=== PATIENT | male | born 1965 | race Caucasian/White ===

== ENCOUNTER 2016-07-10 21:45 | Emergency (ER) | payer OTHER ==
[2016-07-10] MEDS ORDERED: IPRATROPIUM/ALBUTEROL 0.5/3 MG 3 ML AMPUL.NEB INHALATION ONE (23:12)
--- NOTE | 2016-07-10 23:39 | ER PHYSICIAN DOCUMENTATION ---
Physician Documentation [facility] Name:Norberto Gallego Age:51 yrs Sex:Male :1965 Arrival Date:07/10/2016 Time:21:45 Bed5 Private MD:, [facility] ED Miguel Angel Castro Disposition: 07/10 23:00 Chart complete. cd 23:19 Critical Care: not applicable. cd Disposition: 07/10/16 23:26 Discharged to Home/Self Care. Impression: Viral Upper Respiratory Infection (URI), Bronchospasm- Acute. - Condition is Good. - Discharge Instructions: BRONCHOSPASM (Adult), VIRAL URI Adult - URI, Viral, No Abx (Adult). - Prescriptions for Ventolin HFA 90 mcg/actuation Inhalation HFA aerosol inhaler - inhale 2 puff by INHALATION route every 4-6 hours; 1 Cartridge. - Medical Reconciliation form form. - Follow up: Private Physician; When: 7 - 10 days; Reason: Recheck today's complaints, Continuance of care. - Problem is an acute exacerbation. - Symptoms have improved. - Notes: Use Ventolin MDI 2 puffs every 6 hours as needed.... Use Advair every day as usual... Use Neosynephrine [place] as directed... Claritin - D OTC... Flonase OTC as directed. Drink 2 - 3 quarts of water every day.... Avoid alcohol, higher elevation..... Have your Shock Absorption Floor Layer or Family Physician order a Sleep Study when you get home. HPI: 22:30 This 51 yrs old Male presents to ER via Private Vehicle with complaints of cd Shortness Of Breath, sinus congestion. 22:30 The patient has shortness of breath at rest, that occurred at home, and the patient has cd a history of Congestion / URI and post nasal drip. He reports arriving to elevation 5 days ago from [place]. He has difficulty falling asleep, with nasal congestion. He has had Sleep Apnea symptoms and told he needs a Sleep Study, but has not had one yet. No fever, chills, deep cough or wheezing. No calf pain. No Chest pain. Onset: The symptom(s)/episode began/occurred acutely, just prior to arrival. Duration: The symptoms are continuous, but are steadily getting better. Associated signs and symptoms: Pertinent negatives: chest pain, non-productive cough, productive cough, diaphoresis, dizziness, fever, hemoptysis, vomiting. Severity of symptoms: At their worst the symptoms were moderate in the emergency department the symptoms have improved. Risk Factors Risk factors for coronary artery disease include: A history of high cholesterol. Historical: - Allergies: No known drug Allergies; - Home Meds: 1. Advair Diskus Inhl 2. Synthroid Oral 3. [place] STATIN 4. Omeprazole Oral 5. gabapentin oral - PMHx: THYROID PROBLEM; GERD; HIGH CHOLESTEROL; MIGRAINES; - PSHx: None; - Tetanus: < 10 years. - Ebola Screening: : Patient negative for fever greater than or equal to 101.5 degrees Fahrenheit, and additional compatible Ebola Virus Disease symptoms. - Immunization history: Flu Vaccine < 1 year. - Social history: Smoking status: Patient states was never smoker of tobacco. ROS: 22:30 Constitutional: Positive for poor PO intake, Negative for chills, fever. cd 22:30 ENT: Positive for rhinorrhea, sinus congestion, Negative for ear pain, sinus pain, sore throat. 22:30 Respiratory: Positive for shortness of breath, Negative for cough, hemoptysis, pleurisy, sputum production, wheezing. 22:30 All other systems are negative. Exam: 22:30 Neck: Trachea midline, no thyromegaly or masses palpated, and no cervical cd lymphadenopathy. Supple, full range of motion without nuchal rigidity, or vertebral point tenderness. No Meningismus. 22:30 Chest/axilla: Normal chest wall appearance and motion. Nontender with no deformity. cd No lesions are appreciated. 22:30 Constitutional: The patient appears alert, awake, non-diaphoretic, non-toxic, well developed, well nourished, anxious, obese. 22:30 Head/face: Sinus tenderness, is not appreciated. 22:30 Eyes: Exam is negative for acute changes. 22:30 ENT: TM's: are normal, Nose: is normal, Congested without tenderness. 22:30 Cardiovascular: Rate: normal, Rhythm: regular, Pulses: no pulse deficits are appreciated, Heart sounds: normal. 22:30 Respiratory: the patient does not display signs of respiratory distress, Respirations: normal, no acute changes, Breath sounds: are normal, clear throughout, rales, are not appreciated, rhonchi, are not appreciated, wheezing, is not appreciated. Vital Signs: 22:00 BP 169 / 78; Pulse 88; Resp 17; Temp 98.9(O); Pulse Ox 95% on R/A; Weight 108.86 kg; rh Height 5 ft. 9 in. (175.26 cm); Pain 0/10; 22:45 Pulse 78; Resp 16; Pulse Ox 94% on R/A; rh 23:37 BP 148 / 78; Pulse 84; Resp 16; Pulse Ox 94% on R/A; rh 22:00 Body Mass Index 35.44 (108.86 kg, 175.26 cm) rh MDM: 22:40 Differential diagnosis: Anxiety Reaction asthma, Bronchitis pneumonia, pulmonary edema, cd URI, Sleep Apnea. Antibiotic administration: Not indicated. 23:00 Data reviewed: vital signs, nurses notes, old medical records, and as a result, I will cd discharge patient. Data interpreted: Pulse oximetry: on room air is 90 %. Interpretation: normal. Counseling: I had a detailed discussion with the patient and/or guardian regarding: the historical points, exam findings, and any diagnostic results supporting the discharge/admit diagnosis, the need for outpatient follow up, for a recheck, with the patient's primary care provider, to return to the emergency department if symptoms worsen or persist or if there are any questions or concerns that arise at home. Response to treatment: the patient's symptoms have markedly improved after treatment, the patient's condition has returned to base line, and as a result, I will discharge patient. 23:19 Patient medically screened. 07/10 23:01 Order name: Pulse Ox Continuous; Complete Time: 23:02 rh Dispensed Medications: 23:02 Drug: DuoNeb (Albuterol 2.5 mg, Atrovent 0.5 mg); 3 ml; Route: Nebulizer; rh 23:10 Follow up: Response: No adverse reaction Signatures: Miguel Angel Neil MD MD cd Hofsess, Rachel
--- NOTE | 2016-07-10 23:39 | ER NURSING DOCUMENTATION ---
Nurse's Notes [facility] Name:Norberto Gallego Age:51 yrs Sex:Male :1965 Arrival Date:07/10/2016 Time:21:45 Bed5 Private MD:Physician, No Diagnosis:Viral Upper Respiratory Infection (URI);Bronchospasm- Acute Presentation: 07/10 21:51 Acuity: LIA 3 rh 22:24 Presenting complaint: Patient states: pt arrived from [place] 5 days ago, he is getting rh over a cold and c/o SOB while attempting to sleep and sore throat from post nasal. Transition of care: Home. 22:24 Method Of Arrival: Private Vehicle rh Triage Assessment: 22:27 General: Appears in no apparent distress, Behavior is cooperative. Pain: Denies pain. rh EENT: Oral mucosa is dry. Neuro: Level of Consciousness is awake, alert, obeys commands, Oriented to person, place, time, event. Cardiovascular: Capillary refill < 3 seconds Chest pain is denied. Respiratory: Airway is patent Respiratory effort is even, unlabored, Respiratory pattern is regular, symmetrical, Reports cough that is Onset: The symptoms/episode began/occurred yesterday, the patient has mild shortness of breath. GI: Denies nausea. : No deficits noted. Derm: Skin is intact, is healthy with good turgor, Skin is pink, warm & dry. Musculoskeletal: Circulation, motion, and sensation intact. Historical: - Allergies: No known drug Allergies; - Home Meds: 1. Advair Diskus Inhl 2. Synthroid Oral 3. [place] STATIN 4. Omeprazole Oral 5. gabapentin oral - PMHx: THYROID PROBLEM; GERD; HIGH CHOLESTEROL; MIGRAINES; - PSHx: None; - Tetanus: < 10 years. - Ebola Screening: : Patient negative for fever greater than or equal to 101.5 degrees Fahrenheit, and additional compatible Ebola Virus Disease symptoms. - Immunization history: Flu Vaccine < 1 year. - Social history: Smoking status: Patient states was never smoker of tobacco. Screenin:28 Infectious Disease Risk None. Abuse screen: Denies threats or abuse. Denies injuries rh from another. Nutritional screening: No deficits noted. Assessment: 22:28 See Triage Assessment done by same RN. rh 23:38 Respiratory: Breath sounds are clear bilaterally. rh Vital Signs: 22:00 BP 169 / 78; Pulse 88; Resp 17; Temp 98.9(O); Pulse Ox 95% on R/A; Weight 108.86 kg; rh Height 5 ft. 9 in. (175.26 cm); Pain 0/10; 22:45 Pulse 78; Resp 16; Pulse Ox 94% on R/A; rh 23:37 BP 148 / 78; Pulse 84; Resp 16; Pulse Ox 94% on R/A; rh 22:00 Body Mass Index 35.44 (108.86 kg, 175.26 cm) rh ED Course: 21:46 Patient arrived in ED. em2 21:46 Physician, No is Private Physician. em2 21:51 Cassidy Prince is Primary Nurse. rh 21:51 Triage completed. rh 21:55 Notified ED Physician of patient's arrival and chief complaint. Dr. Neil notified. rh 22:00 Pulse ox on. rh 22:28 Valuables Remains with patient Patient has correct armband on for positive rh identification. Bed in low position. Call light in reach. Side rails up X 1. 23:19 Miguel Angel Neil MD is Attending Physician. cd Administered Medications: 23:02 Drug: DuoNeb (Albuterol 2.5 mg, Atrovent 0.5 mg); 3 ml; Route: Nebulizer; rh 23:10 Follow up: Response: No adverse reaction Outcome: 23:26 Discharge ordered by . cd 23:37 Discharged to home ambulatory, with family. rh 23:37 Condition: improved 23:37 Discharge Assessment: Patient awake, alert and oriented x 3. No cognitive and/or functional deficits noted. Patient verbalized understanding of disposition instructions. 23:37 Discharge instructions given to patient, family, Instructed on discharge instructions, follow up and referral plans. medication usage, Demonstrated understanding of instructions, medications, Prescriptions given X 1. 23:38 Patient left the ED. Signatures: Miguel Angel Neil MD MD cd [place], [place] [id number] Cassidy Prince
== END 2016-07-10 23:39 | disposition home or self-care (01) ==
LOC: ER 21:45
DX: J06.9 Acute upper respiratory infection, unspecified (principal); J98.01 Acute bronchospasm; Z79.899 Other long term (current) drug therapy
CPT/HCPCS: 94640; 99284; J7620